=== PATIENT | male | born 1935 | race Caucasian/White ===

== ENCOUNTER 2021-01-30 08:10 | Emergency (ER) | payer MEDICARE, SELFPAY ==
[2021-01-30 08:19] VITALS: BP 167/81; PULSE 66; RESP 16; TEMP 37.6; O2SAT 98
--- NOTE | 2021-01-30 08:27 | ED.EAR ---
HPI - Ear Problem General Chief complaint: Ear Stated complaint: fb in ear Time Seen by Provider: 01/30/21 08:27 Source: patient Mode of arrival: ambulatory Limitations: no limitations History of Present Illness HPI Narrative: 86 year old male who presents to [facility] care with complaints that he took his hearing aids out and he thinks that the rubber tip is still in his ear canal. Patient denies any acute pain to his right ear, states an irritating feeling. Patient denies any known fever, chills or sweats, states no other complaints. MD Complaint: foreign body Location: right ear Related Data Home Medications Medication Instructions Recorded Confirmed Coumadin 01/30/21 Allergies Allergy/AdvReac Type Severity Reaction Status Date / Time No Known Allergies Allergy Verified 01/30/21 08:27 Review of Systems Review of Systems: Narrative: CONSTITUTIONAL: Denies fever, chills, or sweats. EYES: Denies visual changes, redness, or discharge. ENT: Denies rhinorrhea, congestion, sore throat, foreign body in right ear some irritation. CARDIOVASCULAR: Denies chest pain, palpitations, or edema. RESPIRATORY: Denies cough or dyspnea. GASTROINTESTINAL: Denies abdominal pain, nausea, vomiting, or diarrhea. GENITOURINARY: Denies dysuria or hematuria. SKIN: Denies rash or itching. MUSCULOSKELETAL: Denies back pain, joint pain, or myalgia. NEUROLOGIC: Denies headache, numbness, or weakness. PSYCHIATRIC: Denies anxiety or depression. All systems reviewed & are unremarkable except as noted in HPI and below PMFSH Past Medical History Medical History (Updated 01/30/21 @ 08:48 by Marisela Posadas NP) History of cardiac disorder History of Coumadin therapy Surgical History Surgical History (Updated 01/30/21 @ 08:46 by Marisela Posadas NP) H/O Achilles tendon repair H/O aortic valve replacement 1995 Family History Family History (Updated 01/30/21 @ 08:48 by Marisela Posadas NP) Sibling History of stomach cancer Social History Social History (Updated 01/30/21 @ 08:46 by Marisela Posadas NP) Smoking status: Former smoker Additional smoking assessment comments: states he quit over 25 years ago only smoked for about 5 years Alcohol intake: never Substance use: never Living arrangements: alone Occupation/Education: retired Gender identity (if verbalized by the patient): Male Comments At time of signature, agree with nursing past medical, surgical, social and family history. There is no relevant family history pertinent to the presenting complaint Exam Narrative: Exam Narrative: GENERAL: Well-appearing, well-nourished, and in no acute distress. HEAD: Normocephalic, atraumatic. EYES: PERRLA and EOMI. ENT: Nares clear, no rhinorrhea or epistaxis. Mucous membranes moist. Right TM has foreign body tip off of hearing aid in his ear canal, Left TM intact with good light reflex. After removal of foreign body Right TM normal with good light reflex, no drainage from ear canal or acute redness. nares clear with no drainage, throat pink with no exudates, lesions, or tonsil enlargement. NECK: Supple. no lymphadenopathy CHEST: Clear to auscultation. No respiratory distress. SAO2 98% on room air. HEART: Regular rate and rhythm. aortic valve clicking murmur heard. Normal peripheral pulses. ABDOMEN: Soft, nontender, nondistended, normal active bowel sounds. EXTREMITIES: Normal range of motion. No edema. SKIN: Warm, dry, no rash. some areas of bruising noted on forearms is on half-way Coumadin therapy NEURO: No focal deficits. Alert and oriented x3. gait steady Course Vital Signs Vital signs: Vital Signs Temperature 37.6 C 01/30/21 08:19 Pulse Rate 66 01/30/21 08:19 Respiratory Rate 16 01/30/21 08:19 Blood Pressure 167/81 H 01/30/21 08:19 Pulse Oximetry 98 01/30/21 08:19 Temperature 37.6 C 01/30/21 08:19 Pulse Rate 66 01/30/21 08:19 Respiratory Rate 16 01/30/21 08:19 Blood Pressure
== END 2021-01-30 08:41 | disposition home or self-care (01) ==
PROVIDERS: Emergency Provider Registered Nurse; PCP Internal Medicine
DX: T16.1XXA Foreign body in right ear, initial encounter (principal); X58.XXXA Exposure to other specified factors, initial encounter; Z87.891 Personal history of nicotine dependence; Z95.2 Presence of prosthetic heart valve
CPT/HCPCS: 69200; 99212; G0463